=== PATIENT | male | born 1935 | race Hispanic/Latino ===

== ENCOUNTER 2019-11-20 04:18 | Emergency (ER) | payer OTHER ==
[2019-11-20] MEDS ORDERED: ACETAMINOPHEN EXTRA STRENGTH 500 MG TABLET ONE (04:27)
== END 2019-11-20 09:12 | disposition home or self-care (01) ==
LOC: EDH 04:18
DX: S13.4XXA Sprain of ligaments of cervical spine, initial encounter (principal); L03.011 Cellulitis of right finger; E11.9 Type 2 diabetes mellitus without complications; I10 Essential (primary) hypertension; W18.39XA Other fall on same level, initial encounter; Y93.01 Activity, walking, marching and hiking; Y92.091 Bathroom in other non-institutional residence as the place of occurrence of the external cause; Y99.8 Other external cause status

== ENCOUNTER → 2021-10-12 | Outpatient (CLI) | payer OTHER, MEDICARE ==
[~2021-10-12] MED LIST: IOHEXOL 350 MG/ML 100ML INFUS..BTL IV ONE; IOHEXOL-350 50ML VIAL IV ONE
== END | disposition home or self-care (01) ==
LOC: RAH 08:57
PROVIDERS: ATTEND Internal Medicine Cardiovascular Disease
DX: I70.213 Atherosclerosis of native arteries of extremities with intermittent claudication, bilateral legs (principal); I70.0 Atherosclerosis of aorta; J98.11 Atelectasis
CPT/HCPCS: 75635; Q9967 ×2